=== PATIENT | female | born 1985 | race Caucasian/White ===

== ENCOUNTER → 2018-12-04 | Emergency (ER) | payer OTHER ==
[~2018-12-04] VITALS: Ht 162.6 cm; Wt 89.8 kg
[~2018-12-04] MED LIST: ALDOMET250 MG PO; AMOXICILLIN 50500 MG PO; AMOXICILLIN500 M1 PO; FLAGYL500 MG PO; FOLIC ACID 1 MG1 MG PO; NOHOMEMEDICATIONS; NORCO 5-325 TA1 EAC1 PO; PAIN & FEVER325 MG PO; PRENATAL PO
[2018-12-04 15:42] VITALS: BP 176/100
== END ==
LOC: M.ERS 15:36
DX: K04.7 Periapical abscess without sinus (principal); K02.9 Dental caries, unspecified

== ENCOUNTER 2019-08-19 22:00 | Emergency (ER) | payer OTHER ==
[~2019-08-19] VITALS: Ht 162.6 cm; Wt 86.2 kg
[2019-08-19 22:39] LABS: ABSOLUTE LYMPHOCYTES 0.9 thou/uL (0.8-5.3); ABSOLUTE MONOCYTES 0.6 thou/uL (0.0-1.2); ABSOLUTE NEUTROPHILS 6.8 thou/uL (1.6-8.1); BASOPHILS 0.2 %; HEMATOCRIT 37.9 % (37.0-47.0); HEMOGLOBIN 13.7 gm/dL (12.0-15.0); LYMPHOCYTES 10.5 %; MCH 31.2 pg (26.0-34.0); MCHC 36.2 g/dL (28.0-37.0); MCV 86.3 fL (80.0-100.0); MONOCYTES 6.9 %; MPV 8.9 fl. (7.2-11.1); NUCLEATED RBCS 0 /100WBC; PLATELET COUNT* 201 thou/uL (150-400); POLYS 82.4 %; RBC 4.39 mil/uL (4.20-5.00); RDW-CV 12.6 % (10.5-14.5); WBC 8.3 thou/uL (4.0-11.0)
[2019-08-19 22:50] LABS: CALCIUM 8.2 mg/dL (8.5-10.1); CREATININE 0.9 mg/dL (0.6-1.3)
[2019-08-19 22:51] LABS: POTASSIUM 2.8 mmol/L (3.5-5.1)
[2019-08-19 22:55] LABS: ALBUMIN 3.1 g/dL (3.4-5.0); TOTAL BILIRUBIN 0.9 mg/dL (<0.1-1.0); TOTAL PROTEIN 7.7 g/dL (6.4-8.2)
[2019-08-19 23:25] LABS: INFLUENZA A ANTIGEN Negative (Negative); INFLUENZA B ANTIGEN Negative (Negative)
[2019-08-20 00:09] LABS: URINE BILIRUBIN NEGATIVE (Negative); URINE BLOOD 2+ (Negative); URINE CLARITY CLEAR; URINE COLOR YELLOW; URINE GLUCOSE-RANDOM NEGATIVE (Negative); URINE KETONES TRACE (Negative); URINE NITRITE-REFLEX NEGATIVE (Negative); URINE PROTEIN 1+ (Negative)
[2019-08-20 00:10] LABS: SQUAMOUS 0-3 Few /LPF (0-3); TRANSITIONAL EPITHEL CELL 0-3 Few /LPF (None Seen); URINE LEUKOCYTES-REFLEX 3+ (Negative); URINE WBC-REFLEX >25 Many /HPF (0-5); WBC CLUMPS Moderate (None Seen)
[2019-08-20 00:11] LABS: BACTERIA-REFLEX >30 Many /HPF (None Seen); CASTS None Seen /LPF (None Seen); CRYSTALS None Seen /LPF (None Seen); MUCUS 0-3 Light strn/LPF (None Seen)
[2019-08-20] MEDS ORDERED: ZOFRAN ODT4 MG PO (02:26)
[2019-08-20] MEDS ORDERED: HYDROCODON-ACE1 EAC8 PO (02:26)
[2019-08-20] MEDS ORDERED: CIPROFLOXACIN500 M1 PO (02:26)
[2019-08-20 02:45] VITALS: BP 157/97
== END 2019-08-20 02:45 | disposition home or self-care (01) ==
LOC: M.ERS 22:00
PROVIDERS: Emergency Medicine
DX: N39.0 Urinary tract infection, site not specified (principal); E86.0 Dehydration; R11.2 Nausea with vomiting, unspecified; Z20.828 Contact with and (suspected) exposure to other viral communicable diseases; Z88.6 Allergy status to analgesic agent